=== PATIENT | female | born 1940 | race Caucasian/White ===

== ENCOUNTER 2021-03-06 16:27 | Emergency (ER) | payer MEDICARE, SELFPAY ==
[2021-03-06] VITALS (9 sets, daily range): BP systolic 149–170; BP diastolic 73–96; PULSE 78–88; RESP 12–22; TEMP 36.4; O2SAT 98–100
--- NOTE | ~2021-03-06 | US_ITS ---
US venous doppler [facility] DATE: 03/06/2021 17:25 INDICATION: Left leg pain and swelling TECHNIQUE: Real-time and color flow imaging and Doppler analysis COMPARISON: None FINDINGS: There is spontaneous and phasic flow and normal augmentation and color flow signal and norm al compression of the deep veins of the left lower extremity. Left greater saphenous vein is patent. IMPRESSION: No evidence of deep venous thrombosis of the left lower extremity Reviewed, dictated and finalized at [facility]. Reviewed, dictated and finalized at location A.
--- NOTE | 2021-03-06 19:27 | PC.NURSE ---
Pt was sent from [facility] for evaluation of lower leg ulcers looking worse and odorous today and concerns regarding a DVT per the wound nurse that was seeing her today. Pts son was notified by the facility of patient being sent for eval.
[2021-03-06 20:00] LABS: Basophils Absolute Auto 0.1 K/mm3 (0.0-0.1); Basophils Percent Auto 0.8 % (0.2-1.2); Eosinophils Absolute Auto 0.2 K/mm3 (0-0.3); Eosinophils Percent Auto 2.8 % (0-4.4); Hematocrit 40.4 % (37.0-47.0); Hemoglobin 12.9 g/dL (12.0-15.0); Immature Granulocyte Absolute 0.02 K/mm3 (0.00-0.031); Immature Granulocyte Percent A 0.3 % (0-0.5); Lymphocytes Absolute Auto 1.79 K/mm3 (0.9-3.2); Lymphocytes Percent Auto 22.6 % (18.3-44.2); Mean Corpuscular HGB Conc 31.9 g/dl (32-36); Mean Corpuscular Hemoglobin 30.2 pg (26-34); Mean Corpuscular Volume 94.6 fl (80-100); Mean Platelet Volume 9.3 fl (7.4-10.4); Monocytes Absolute Auto 0.7 K/mm3 (0.1-0.6); Monocytes Percent Auto 9.3 % (2.6-8.5); Neutrophils Absolute Auto 5.1 K/mm3 (1.3-6.7); Neutrophils Percent Auto 64.2 % (45.5-73.1); Platelet Count Result 308 k/mm3 (150-375); Red Blood Count 4.27 M/mm3 (4.2-5.4); Red Cell Distribution Width 15.7 % (11.5-14.5); White Blood Count 7.9 K/mm3 (4.5-10.0)
[2021-03-06 20:14] LABS: Lactic Acid Reflex 1.2 mmol/L (0.7-2.1)
[2021-03-06 20:16] LABS: Alanine Aminotransferase 16 U/L (4-35); Albumin Level 3.8 g/dL (3.5-5.1); Alkaline Phosphatase 110 U/L (38-126); Anion Gap 8 mmol/L (8-16); Aspartate Amino Transferase 28 U/L (14-36); Bilirubin,Total 0.9 mg/dL (0.2-1.3); Blood Urea Nitrogen 13 mg/dL (7-17); Calcium 9.8 mg/dL (8.4-10.2); Carbon Dioxide 29 mmol/L (22-30); Chloride 99 mmol/L (98-107); Estimated Glomerular Filt Rate 53; Glucose 102 mg/dL (65-110); Potassium 3.4 mmol/L (3.4-5.0); Sodium 136 mmol/L (137-145)
--- NOTE | 2021-03-06 20:47 | PC.NURSE ---
Called [facility] to request transport. Declined Called [facility] service to request transport. No answer Called [facility] to request transport. ETA [id number]
--- NOTE | 2021-03-06 21:36 | PC.NURSE ---
Called [facility] at [phone] and gave report to Leisa GOMEZ on pt status and POC.
--- NOTE | 2021-03-06 22:23 | ED.EXTPRO ---
HPI - Extremity Problem General Chief complaint: Extremity Problem,Nontraumatic Stated complaint: Left leg pain Time Seen by Provider: 03/06/21 19:12 Source: EMS and RN notes reviewed Mode of arrival: EMS Limitations: dementia History of Present Illness HPI Narrative: 80-year-old with a history of dementia, chronic foot ulcer was sent from a correction for venous Dopplers to rule out DVT of her left leg. Patient nurse mentions that she has been having this ulcer for quite some time and noticed some drainage this morning. However they denied any history of fever or chills. No history could be obtained from the patient secondary to her dementia MD Complaint: extremity pain Onset (ago): week(s) Pain Consistency: constant Location: left Associated symptoms: denies other symptoms Related Data Allergies Allergy/AdvReac Type Severity Reaction Status Date / Time No Known Allergies Allergy Verified 03/06/21 19:52 Review of Systems Review of Systems: ROS unobtainable: Yes unobtainable due to medical condition (Dementia) Exam Narrative: Exam Narrative: GENERAL: Well-appearing, well-nourished, and in no acute distress. Constantly cries HEAD: Normocephalic, atraumatic. EYES: PERRLA and EOMI.. NECK: Supple. CHEST: Clear to auscultation. No respiratory distress. HEART: Regular rate and rhythm. No murmur heard. Normal peripheral pulses. ABDOMEN: Soft, nontender, nondistended, normal active bowel sounds. EXTREMITIES: Normal range of motion. No edema. Examination of the left foot shows multiple small ulcers on the dorsum and also on the lateral aspect of the ankle. Ulcer on the dorsum of the foot has yellowish crater with mild discharge. No odor. Very tender to touch SKIN: Warm, dry, no rash. NEURO: No focal deficits. Alert and oriented x3. PSYCH: Normal mood and affect. Course Vital Signs Vital signs: Vital Signs Temperature 36.4 C L 03/06/21 16:42 Pulse Rate 84 03/06/21 16:42 Respiratory Rate 12 03/06/21 16:42 Blood Pressure 159/83 H 03/06/21 16:42 Pulse Oximetry 99 03/06/21 16:42 Temperature 36.4 C L 03/06/21 16:42 Pulse Rate 83 03/06/21 21:51 Respiratory Rate 16 03/06/21 21:51 Blood Pressure 161/96 H 03/06/21 21:51 Pulse Oximetry 98 03/06/21 21:51 MDM - Extremity (Nontraumatic) Lab Data Result diagrams: 03/06/21 19:52 03/06/21 19:52 Labs: Lab Results 03/06/21 03/06/21 03/06/21 Range/Units 19:52 19:52 19:52 WBC 7.9 (4.5-10.0) K/mm3 RBC 4.27 (4.2-5.4) M/mm3 Hgb 12.9 (12.0-15.0) g/dL Hct 40.4 (37.0-47.0) % MCV 94.6 (80-100) fl MCH 30.2 (26-34) pg MCHC 31.9 L (32-36) g/dl RDW 15.7 H (11.5-14.5) % Plt Count 308 (150-375) k/mm3 MPV 9.3 (7.4-10.4) fl Immature Gran % (Auto) 0.3 (0-0.5) % Neut % (Auto) 64.2 (45.5-73.1) % Lymph % (Auto) 22.6 (18.3-44.2) % Lake % (Auto) 9.3 H (2.6-8.5) % Eos % (Auto) 2.8 (0-4.4) % Baso % (Auto) 0.8 (0.2-1.2) % Lymph # (Auto) 1.79 (0.9-3.2) K/mm3 Lake # (Auto) 0.7 H (0.1-0.6) K/mm3 Eos # (Auto) 0.2 (0-0.3) K/mm3 Baso # (Auto) 0.1 (0.0-0.1) K/mm3 Abs Immat Gran (auto) 0.02 (0.00-0.031) K/mm3 Absolute Neuts (auto) 5.1 (1.3-6.7) K/mm3 Absolute Nucleated RBC 0.0 (0.0-0.012) K/mm3 Nucleated RBC % 0.0 (0.0-0.2) % Sodium 136 L (137-145) mmol/L Potassium 3.4 (3.4-5.0) mmol/L Chloride 99 (98-107) mmol/L Carbon Dioxide 29 (22-30) mmol/L Anion Gap 8 (8-16) mmol/L BUN 13 (7-17) mg/dL Creatinine 1.00 (0.7-1.0) mg/dL Estim Creat Clear Calc Not Reportable Estimated GFR 53 L (59 - ) Glucose 102 (65-110) mg/dL Lactic Acid 1.2 (0.7-2.1) mmol/L Calcium 9.8 (8.4-10.2) mg/dL Total Bilirubin 0.9 (0.2-1.3) mg/dL AST 28 (14-36) U/L ALT 16 (4-35) U/L Alkaline Phosphatase 110 (38-126) U/L Total Protein 7.0 (6.3-8.2) g/dL Albumin 3.8 (3
--- NOTE | 2021-03-06 22:52 | PC.NURSE ---
[facility] called with ETA update of midnight.
--- NOTE | 2021-03-07 00:21 | PC.NURSE ---
called [facility] for ETA update. ETA [id number]
[2021-03-07 01:07] VITALS: BP 180/105; PULSE 77; RESP 18; TEMP 36.8; O2SAT 99
--- NOTE | 2021-03-07 01:29 | PC.NURSE ---
called [facility] for ETA update. Due to 911 call volume new ETA is [id number]
[2021-03-07 03:31] VITALS: BP 185/96; PULSE 90; RESP 18; O2SAT 99
--- NOTE | 2021-03-07 03:53 | PC.NURSE ---
called [facility] for ETA update. ETA [id number]
--- NOTE | 2021-03-07 04:28 | PC.NURSE ---
[facility] called with updated ETA. ETA [id number]
--- NOTE | 2021-03-07 05:54 | PC.NURSE ---
[facility] here.
== END 2021-03-07 05:57 ==
PROVIDERS: Emergency Provider Family Medicine
DX: L97.522 Non-pressure chronic ulcer of other part of left foot with fat layer exposed (principal); F03.90 Unspecified dementia, unspecified severity, without behavioral disturbance, psychotic disturbance, mood disturbance, and anxiety; M79.605 Pain in left leg
CPT/HCPCS: 36415; 80053; 83605; 85025; 87040; 87070; 87147; 87186; 87205; 93971; 96365; 99284

== ENCOUNTER 2021-05-19 13:24 | Inpatient (IN) | payer MEDICARE, SELFPAY ==
[2021-05-19] VITALS (16 sets, daily range): BP systolic 109–197; BP diastolic 79–130; PULSE 82–119; RESP 13–26; TEMP 36.4–36.8; O2SAT 93–98; BMI 23.3
--- NOTE | ~2021-05-19 | XR_ITS ---
XR chest 1V portable 05/19/2021 14:30 Indication: Elevated troponin. Altered mental status. Procedure: AP portable chest Comparison: No prior studies for comparison. Findings: There are linear infiltrates of the right midlung zone which most likely represents atelect asis. No focal pneumonia, edema, pleural effusion or pneumothorax. Impression: 1: Linear infiltrates right midlung, likely atelectasis. Reviewed, dictated and finalized at location A. Impression: 1: Linear infiltrates right midlung, likely atelectasis.
--- NOTE | ~2021-05-19 | CT_ITS ---
EXAMINATION: CT brain wo con INDICATION: Confusion COMPARISON: None TECHNIQUE: Standard unenhanced head CT. The dose-length product (DLP) was 681.00 mGy-cm. The mA was a djusted according to patient size. Iterative reconstruction technique was employed. FINDINGS: There is no acute intraparenchymal hemorrhage. No evidence of mass lesion. No evidence of a cute infarction. There is an old infarction of the left occipital lobe. There is mild periventricular and subcortical hypodensity probably related to small vessel ischemic disease. There is mild promine nce of the sulci and ventricles related to cerebral atrophy. Intracranial calcified cerebral atherosc lerosis is noted. There are no extra-axial collections. There is no mass effect or midline shift. The orbits and soft tissues are unremarkable. The visualized sinuses and mastoid air cells are well aera nima. IMPRESSION: 1. 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 2. Age related findings. Reviewed, dictated and finalized at location A.
--- NOTE | ~2021-05-19 | US_ITS ---
EXAMINATION:US venous doppler LE LT INDICATION:Left leg swelling TECHNIQUE: Multiple grayscale, color flow and Doppler images of the left lower extremity deep venous systems were obtained and reviewed. COMPARISON:03/06/2021 FINDINGS: There is deep venous thrombosis of the left common femoral, profunda femoral, femoral, popl iteal, posterior tibial and peroneal veins. IMPRESSION: 1: Extensive deep venous thrombosis of the left lower extremity. Dr. Sim Saavedra discussed with the patient's nurse, Angela, from [facility] at 05/20/2021 12:0 2 CDT. Reviewed, dictated and finalized at location A. IMPRESSION: 1: Extensive deep venous thrombosis of the left lower extremity. Dr. Sim Saavedra discussed with the patient's nurse, Angela, from [facility] at 05/20/2021 12:02 CDT.
--- NOTE | 2021-05-19 13:36 | ECG_ITS ---
Measurements Intervals [place] Rate: 95 P: 35 HI: 165 QRS: -60 QRSD: 86 T: 59 QT: 323 QTc: 407 Interpretive Statements SINUS RHYTHM LEAD REVERSSAL V1, V2 LEFT AXIS DEVIATION CONSIDER INFERIOR INFARCT, AGE INDETERMINATE BASELINE ARTIFACT- I, II, III, AVR, AVL, AVF ABNORMAL ECG Electronically Signed On 05-21-2021 16:31:49 CDT by Jared Anderson D.O.
[2021-05-19] MEDS: METOPROLOL TARTRATE INJ 5 MG/5 ML VIAL IV PUSH (14:35)
[2021-05-19] MEDS: SODIUM CHLORIDE 0.9% IV 1,000 ML 999 ML IV CONT ×2 (14:35→16:22)
--- NOTE | 2021-05-19 14:41 | ED.GENADULT ---
HPI - General Adult General Chief complaint: Altered Mental Status Stated complaint: alt loc Time Seen by Provider: 05/19/21 13:30 History of Present Illness HPI narrative: 80-year-old female with history of dementia usually oriented x1 sent by correction for altered mental status. Apparently patient had elevated troponin when they got labs after noting change in status. Per report troponin was elevated 0.095 at correction. Patient arrives alert, cachectic, attempting to answer questions but oriented x0, afebrile with dry mucous membranes. Patient states no pain currently unable to get for HPI or ROS due to dementia. Related Data Home Medications Medication Instructions Recorded Confirmed amlodipine 10 mg PO DAILY 05/19/21 05/19/21 aspirin 81 mg PO DAILY 05/19/21 05/19/21 atorvastatin 40 mg PO HS 05/19/21 05/19/21 clopidogrel 75 mg PO DAILY 05/19/21 05/19/21 famotidine 20 mg PO HS 05/19/21 05/19/21 lorazepam [Ativan] 0.5 mg PO BID 05/19/21 05/19/21 ondansetron 4 mg PO Q6H PRN 05/19/21 05/19/21 quetiapine [Seroquel] 50 mg PO HS 05/19/21 05/19/21 sertraline 50 mg PO DAILY 05/19/21 05/19/21 tramadol 25 mg PO Q8H PRN 05/19/21 05/19/21 trazodone 50 mg PO TID PRN 05/19/21 05/19/21 Allergies Allergy/AdvReac Type Severity Reaction Status Date / Time No Known Allergies Allergy Verified 05/19/21 23:16 Review of Systems Review of Systems: ROS unobtainable: Yes unobtainable due to mental status (History of dementia oriented x0.) [facility] Past Medical History Medical History Cerebrovascular accident Hyperlipidemia Hypertension Peripheral vascular disease Pseudobulbar affect Vascular dementia Surgical History Surgical History History of procedure for peripheral vascular disease Bilateral lower extremity stents performed at [facility] in 2019 or 2020. Family History Family History Other Family history unknown Social History Social History Social History: Resident of [facility]. She stayed at a facility in [facility] and before that she was living in her own home in [place]. The patient is a [employer]. No mention of alcohol, tobacco, or drug use. Son Sami Bueno is her healthcare power of trade mark attorney, who reports that the patients code status is do not resuscitate. Smoking status: Never smoker Alcohol intake: never Substance use: never Spiritual care concerns: No Exam Narrative: General: alert, afebrile, confused, attempting to answer all questions Head: normocephalic, atraumatic ENT: dry mucous membranes, oropharynx patent, no rhinorrhea Neck: supple, trachea midline, no JVD Chest: equal chest rise bilaterally, no chest wall trauma Lungs: clear to auscultation bilaterally, respirations mildly labored CV: regular rate, no YUE B, calf size equal bilaterally Abd: soft, non-distended, non-tender, no rebound, patient does not have g-tube : no CVA tenderness B, bladder non-distended Back: no lumbar bony tenderness. paraspinal muscles without spasm EXT: no deformity noted, moving all extremities equally Skin: warm, dry, intact, no cyanosis Neuro: alert, oriented x 3; CN 2-12 grossly intact, no gross focal deficits Psych: affect appropriate, though content normal Course Course Emergency Course: Patient with altered mental status and severe dehydration by exam and sodium 157, slightly elevated troponinn with no acute EKG changes. Patient does not have PEG tube, unsure if able to still feed self. Will admit for further evaluation. Modified code status sent by family and on chart. Vital Signs Vital signs: Vital Signs Temperature 36.5 C 05/19/21 13:25 Pulse Rate 115 H 05/19/21 13:25 Respiratory Rate 18 05/19/21 13:25 Blood Pressure 169/130 H 05/19/21 13:
[2021-05-19 15:02] LABS: Basophils Absolute Auto 0.1 K/mm3 (0.0-0.1); Basophils Percent Auto 0.3 % (0.2-1.2); Eosinophils Percent Auto 0.1 % (0-4.4); Hematocrit 50.8 % (37.0-47.0); Hemoglobin 15.7 g/dL (12.0-15.0); Immature Granulocyte Percent A 0.7 % (0-0.5); Lymphocytes Absolute Auto 1.38 K/mm3 (0.9-3.2); Lymphocytes Percent Auto 9.2 % (18.3-44.2); Mean Corpuscular HGB Conc 30.9 g/dl (32-36); Mean Corpuscular Hemoglobin 29.8 pg (26-34); Mean Corpuscular Volume 96.4 fl (80-100); Mean Platelet Volume 10.8 fl (7.4-10.4); Monocytes Absolute Auto 1.2 K/mm3 (0.1-0.6); Monocytes Percent Auto 7.9 % (2.6-8.5); Neutrophils Absolute Auto 12.2 K/mm3 (1.3-6.7); Neutrophils Percent Auto 81.8 % (45.5-73.1); Platelet Count Result 253 k/mm3 (150-375); Red Blood Count 5.27 M/mm3 (4.2-5.4); Red Cell Distribution Width 14.3 % (11.5-14.5)
[2021-05-19 15:15] LABS: INR 1.2; Prothrombin Time 15.4 Seconds (11.1-14.7)
[2021-05-19 15:16] LABS: Alanine Aminotransferase 16 U/L (4-35); Albumin Level 3.4 g/dL (3.5-5.1); Alkaline Phosphatase 99 U/L (38-126); Anion Gap 8 mmol/L (8-16); Aspartate Amino Transferase 23 U/L (14-36); Bilirubin,Total 0.7 mg/dL (0.2-1.3); Blood Urea Nitrogen 43 mg/dL (7-17); Calcium 8.9 mg/dL (8.4-10.2); Carbon Dioxide 30 mmol/L (22-30); Chloride 119 mmol/L (98-107); Estimated CRCL calculation 28 ml/min; Estimated Glomerular Filt Rate 36; Glucose 130 mg/dL (65-110); Potassium 3.1 mmol/L (3.4-5.0); Sodium 157 mmol/L (137-145)
[2021-05-19 15:46] LABS: NT Pro B Type Natriuretic Pept 814 pg/mL (5-100); Troponin I 0.035 ng/mL (0.000-0.034)
--- NOTE | 2021-05-19 15:46 | PC.NURSE ---
SPOKE WITH MAURICE AT [facility] WHO INDICATED THAT PT IS A DNR BUT WE HAVE NO OFFICIAL PAPERWORK. THEN CALLED SON DEEDEE WHO SPOKE WITH DR COVARRUBIAS
[2021-05-19] MEDS: hydrALAZINE HCL 20 MG/ML VIAL 10 MG IV PUSH (16:22)
[2021-05-19 16:52] LABS: Add Urine Microscopic? YES; Appearance Urine Clear (Clear); Bilirubin Urine Negative (Negative); Blood Urine 2+ (Negative); Color Urine Yellow (Yellow); Glucose Urine UA Negative (Negative); Ketones Urine Negative (Negative); Leukocyte Esterase Ur Negative LEU/UL (Negative); Mucus Urine Few /lpf; Nitrate Urine Negative (Negative); Protein Urine 1+ mg/dL (Negative); Specific Grav Ur 1.023 (1.001-1.035); Squamous Epithelial Cell Urine Occasional /hpf (Few); Urobilinogen Urine Negative mg/dL (<2.0)
--- NOTE | 2021-05-19 17:45 | PM.IMHP ---
H&P: HPI History of Present Illness Date/Time: 05/19/21 17:45 Chief Complaint: Altered mental status. Narrative: This is a 80-year-old female with history of stroke, peripheral vascular disease, dementia, hypertension, hyperlipidemia, and anxiety presented to the emergency department earlier today via EMS from [facility] for evaluation of altered mental status. The patient is alert but not oriented and she is not able to provide me any meaningful history and as such a majority of the following is obtained via a review of her electronic medical records as well as discussions with her son, Sami Bueno, via phone. Sami became her legal guardian within the past several years due to the patient's progressive dementia. Prior to that she did not see really see doctors due to her [employer] haydee and aside from the dementia she has been quite healthy up into the last few years when she has developed leg pain due to peripheral vascular disease. She had stents placed in her lower extremities sometime within the last year and since that time she has progressively declined. Within the past several months she has been crying and moaning frequently which has been attributed to pseudobulbar affect. She has preferred to be in a wheelchair the last several months and she has been less interactive. Her appetite has also dropped off though I was told she has not been eating or drinking whatsoever the past several days. Labs were drawn sometime this morning and is my understanding that she was sent to the emergency department because her troponin was a bit elevated. Since arrival she has moaned and cried out frequently though she is unable to verbalize why. She did answer a couple of yes and no questions though I am not certain if her responses are accurate. She did indicate that she was having pain though cannot localize, and also indicated having some nausea. Vital signs have been stable in the emergency department. Labs are consistent with dehydration and she is being admitted in this setting. Review of Systems Review of Systems: Unable to obtain accurately given clinical condition as above. [facility] Past Medical History Medical History (Updated 05/19/21 @ 19:59 by Kayla Rosado PA-C) Cerebrovascular accident Hyperlipidemia Hypertension Peripheral vascular disease Pseudobulbar affect Vascular dementia Surgical History Surgical History (Updated 05/19/21 @ 20:17 by Kayla Rosado PA-C) History of procedure for peripheral vascular disease Bilateral lower extremity stents performed at [facility] in 2019 or 2020. Family History Family History Other Family history unknown Social History Social History (Updated 05/19/21 @ 20:22 by Kyala Rosado PA-C) Social History: Resident of [facility]. She stayed at a facility in [facility] and before that she was living in her own home in [place]. The patient is a [employer]. No mention of alcohol, tobacco, or drug use. Son Sami Bueno is her healthcare power of tax associate attorney, who reports that the patients code status is do not resuscitate. Meds Home Medications and Allergies Home Medications Medication Instructions Recorded Confirmed Type doxycycline hyclate 100 mg PO DAILY #14 cap 03/06/21 Rx amlodipine 10 mg PO DAILY 05/19/21 History aspirin [Adult Aspirin EC Low 81 mg PO DAILY 05/19/21 History Strength] atorvastatin 40 mg PO HS 05/19/21 History clopidogrel 75 mg PO DAILY 05/19/21 History famotidine 20 mg PO HS 05/19/21 History lorazepam [Ativan] 0.5 mg PO BID 05/19/21 History quetiapine [Seroquel] 50 mg PO HS 05/19/21 History sertraline 50 mg PO DAILY 05/19/21 History trazodone 25 mg PO HS 05/19/21 History Allergies Allergy/AdvReac Type Severity Reaction Status Date / Time No Known Allergies Allergy Verified 05/19/21 15:00 Vital Signs Vital Signs - 24 hr 05/19/21
[2021-05-19 17:59] LABS: Troponin I 0.053 ng/mL (0.000-0.034)
[2021-05-19 20:49] LABS: Lactic Acid Reflex 2.1 mmol/L (0.7-2.1)
[2021-05-19 21:10] LABS: Troponin I 0.066 ng/mL (0.000-0.034)
[2021-05-19 21:36] LABS: CRP 3.8 mg/dL (<1.0)
[2021-05-19 21:52] LABS: Anion Gap 11 mmol/L (8-16); Blood Urea Nitrogen 40 mg/dL (7-17); Calcium 8.9 mg/dL (8.4-10.2); Carbon Dioxide 25 mmol/L (22-30); Chloride 121 mmol/L (98-107); Creatine Kinase 57 U/L (30-135); Estimated CRCL calculation 33 ml/min; Estimated Glomerular Filt Rate 43; Glucose 123 mg/dL (65-110); Magnesium 2.4 mg/dL (1.6-2.3); Sodium 157 mmol/L (137-145)
--- NOTE | 2021-05-19 22:28 | ECG_ITS ---
Measurements Intervals [place] Rate: 114 P: 15 MA: 157 QRS: -58 QRSD: 84 T: 77 QT: 355 QTc: 489 Interpretive Statements SINUS TACHYCARDIA LEFT VENTRICULAR HYPERTROPHY AND ST-T CHANGE INFERIOR INFARCT, AGE INDETERMINATE BORDERLINE ST-T WAVE ABNORMALITY- HIGH LATERAL LEADS ABNORMAL ECG Electronically Signed On 05-20-2021 6:58:20 CDT by Jared Anderson D.O.
[2021-05-19] MEDS: DEXTROSE 5% 1,000 ML 1,000 ML 75 ML IV CONT (22:52)
--- NOTE | 2021-05-19 23:14 | ADMGEN ---
This patient, Esther Bueno, was admitted to [facility] Room 331-01 at 1945. Patient/family oriented to hospital policies and general routines including ID bracelet, bed and alarms, visiting hours, pain management, procedures, bathroom and other care routines, personal items, smoking policy, room service/diet, and visiting hours. Information on how to activate the Rapid Response Team has been discussed. Patient/Family are encouraged to report perceived risks to care and to ask questions if they do not understand what they are told or what they should do.
[2021-05-19 23:34] LABS: Reflex Lactic Acid Yes or No Add Lactic
[2021-05-20] VITALS (7 sets, daily range): BP systolic 102–160; BP diastolic 61–110; PULSE 74–91; RESP 18–26; TEMP 35.8–36.7; O2SAT 94–96
[2021-05-20] LABS: Lactic Acid 1.1 mmol/L (0.7-2.1)
[2021-05-20] MEDS: QUEtiapine FUMARATE 25 MG TABLET 50 MG PO ×2 (00:29→21:54)
[2021-05-20] MEDS: ATORVASTATIN 40 MG TABLET PO ×2 (00:29→21:55)
[2021-05-20] MEDS: FAMOTIDINE 20 MG TABLET PO ×2 (00:29→21:54)
[2021-05-20] MEDS: amLODIPine BESYLATE 5 MG TABLET 10 MG PO (06:04)
--- NOTE | 2021-05-20 08:26 | PM.IMPN ---
Progress Note: A&P Additional Plan START OF DOCTOR MELODIE?S PROGRESS NOTE Subjective: The patient is somnolent but arousable. I am uncertain as to whether her lack of cooperation is due to encephalopathy versus dementia versus the fact that the patient is still somnolent and may desire to continue sleeping. Unfortunately I am unable to elicit much information from this patient Objective: General: -somnolent but arousable -No acute distress -No dyspnea -No tachypnea Heart: -Regular rate -Regular rhythm -No murmurs -No gallops -No rubs Lungs: -No wheeze -No rhonchi -No rales Abdomen: -Normal bowel sounds in all four quadrants -No rebound -No guarding -No tenderness Extremities: -2/4 pulse in all four extremities -No clubbing -No cyanosis -left lower extremity edema/induration present Additional Details / Additional Findings / Exceptions / Miscellaneous: Cranial nerves 2-12 appear to be intact however patient does not provide reliable feedback Pertinent Laboratory Results / Pertinent Radiology Results / Pertinent Diagnostic Results / Pertinent Vital Signs: Blood pressure 160/110, pulse 81 Assessment / Plan: Encephalopathy. Possibly secondary to question of pneumonia versus dehydration Query pneumonia. Azithromycin 500 mg IV daily Rocephin 1 g IV daily Pseudo bulbar after affect Left lower extremity edema. Left lower extremity ultrasound to rule out DVT Vascular dementia Peripheral vascular disease, status post bilateral lower extremity stenting. Aspirin 81 mg p.o. daily plus Plavix 75 mg p.o. daily plus Lipitor 40 mg p.o. q.h.s. Hypertension. Norvasc 10 mg p.o. daily plus metoprolol 12.5 mg p.o. b.i.d. plus Imdur 60 mg p.o. daily History of CVA. Aspirin 81 mg p.o. daily plus Plavix 75 mg p.o. daily plus Lipitor 40 mg p.o. q.h.s. Hyperlipidemia. Lipitor 40 mg p.o. q.h.s. Anxiety GERD. Pepcid 20 mg p.o. q.h.s. Depression. Seroquel 50 mg p.o. q.h.s. plus Zoloft 50 mg p.o. daily Hypokalemia. Monitor potassium levels intermittently and supplement as necessary Hypernatremia. Will monitor sodium levels q.4 hours. IV D5W at 75 mL/hour Acute renal insufficiency. Will monitor creatinine intermittently. IV D5W at 75 mL/hour Elevated troponin, for NSTEMI. Troponin is flat. This may be a false elevation secondary to acute renal insufficiency and/or hypertensive urgency. Aspirin 81 mg p.o. daily plus Plavix and 5 mg p.o. daily plus Lipitor 40 mg p.o. q.h.s. plus metoprolol 12.5 mg p.o. b.i.d. plus Imdur 60 mg p.o. daily. Due to patient's multiple medical comorbidities, age, and dementia, medical management this time Microscopic hematuria. Outpatient follow-up with Urology upon discharge DVT prophylaxis. Heparin 5000 units subcutaneously q.12 hours Disposition: Anticipate discharge in 24-72 hours END OF DOCTOR MELODIE?S PROGRESS NOTE Subjective Date/time seen: 05/20/21 08:26 Objective Data Vital Signs Vital Signs: Vital Signs - 24 hr 05/19/21 13:25 05/19/21 13:43 05/19/21 14:00 Temperature 97.7 F Pulse Rate 115 H 110 H 119 H Respiratory Rate 18 17 20 Blood Pressure 169/130 H 169/130 H 163/122 H Pulse Oximetry 94 93 94 05/19/21 14:07 05/19/21 14:30 05/19/21 14:35 Temperature 98.3 F Pulse Rate 116 H 113 H 110 H Respiratory Rate 19 23 H Blood Pressure 176/128 H 177/122 H Pulse Oximetry 94 95 05/19/21 15:30 05/19/21 15:31 05/19/21 15:58 Temperature Pulse Rate 95 95 88 Respiratory Rate 13 14 15 Blood Pressure 194/130 H 197/125 H 156/103 H Pulse Oximetry 95 96 05/19/21 16:00 05/19/21 16:19 05/19/21 16:31 Temperature Pulse Rate 86 91 87 Respiratory Rate 26 H 26 H 18 Blood Pressure 161/100 H 154/108 H 151/97 H Pulse Oximetry 05/19/21 17:01 05/19/21 19:25 05/19/21 19:45 Temperature 97.6 F Pulse Rate 82 95 105 H Respiratory Rate 26 H 16 20 Blood Pressure 150/79 H 125/89 144/112 H Pulse Oxi
[2021-05-20 08:48] LABS: Basophils Percent Auto 0.4 % (0.2-1.2); Eosinophils Absolute Auto 0.1 K/mm3 (0-0.3); Hematocrit 47.3 % (37.0-47.0); Hemoglobin 14.3 g/dL (12.0-15.0); Immature Granulocyte Absolute 0.04 K/mm3 (0.00-0.031); Immature Granulocyte Percent A 0.4 % (0-0.5); Lymphocytes Absolute Auto 1.57 K/mm3 (0.9-3.2); Lymphocytes Percent Auto 14.2 % (18.3-44.2); Mean Corpuscular HGB Conc 30.2 g/dl (32-36); Mean Corpuscular Hemoglobin 29.8 pg (26-34); Mean Corpuscular Volume 98.5 fl (80-100); Mean Platelet Volume 10.9 fl (7.4-10.4); Monocytes Absolute Auto 0.8 K/mm3 (0.1-0.6); Monocytes Percent Auto 7.6 % (2.6-8.5); Neutrophils Absolute Auto 8.5 K/mm3 (1.3-6.7); Neutrophils Percent Auto 76.4 % (45.5-73.1); Platelet Count Result 212 k/mm3 (150-375); Red Cell Distribution Width 14.4 % (11.5-14.5); White Blood Count 11.1 K/mm3 (4.5-10.0)
[2021-05-20 08:58] LABS: Sodium 152 mmol/L (137-145)
[2021-05-20 08:59] LABS: INR 1.1; Partial Thromboplastin Time 22.1 SECONDS (22.3-36.8); Prothrombin Time 14.2 Seconds (11.1-14.7)
[2021-05-20] MEDS: ISOSORBIDE MONONITRATE 60 MG TAB.ER.24H PO (10:26)
[2021-05-20] MEDS: HEPARIN SODIUM 5,000 UNITS/ML VIAL 5000 UNITS SUB-Q (10:27)
[2021-05-20] MEDS: ASPIRIN 81 MG ENTERIC TABLET PO (10:27)
[2021-05-20] MEDS: CLOPIDOGREL BISULFATE 75 MG TABLET PO (10:27)
[2021-05-20] MEDS: SERTRALINE HCL 50 MG TABLET PO (10:27)
[2021-05-20] MEDS: METOPROLOL TARTRATE 12.5 MG TABLET PO ×2 (10:27→21:53)
[2021-05-20 11:30] LABS: Sodium 152 mmol/L (137-145)
[2021-05-20] MEDS: DEXTROSE 5% 1,000 ML 1,000 ML 75 ML IV CONT (14:25)
[2021-05-20 16:21] LABS: Sodium 150 mmol/L (137-145)
[2021-05-20] MEDS: ACETAMINOPHEN 325 MG TABLET 650 MG PO ×2 (18:22→21:59)
[2021-05-20 20:30] LABS: Sodium 149 mmol/L (137-145)
[2021-05-20] MEDS: ENOXAPARIN 80 MG/0.8 ML SYRINGE 70 MG SUB-Q (21:55)
[2021-05-20 22:15] LABS: Partial Thromboplastin Time 24.9 SECONDS (22.3-36.8)
[2021-05-21 00:50] LABS: Sodium 146 mmol/L (137-145)
[2021-05-21] MEDS: DEXTROSE 5% 1,000 ML 1,000 ML 75 ML IV CONT (05:38)
[2021-05-21 06:00] VITALS: BP 142/86; PULSE 70; RESP 18; TEMP 36.7; O2SAT 97
[2021-05-21 06:08] LABS: Basophils Percent Auto 0.3 % (0.2-1.2); Eosinophils Absolute Auto 0.2 K/mm3 (0-0.3); Eosinophils Percent Auto 2.1 % (0-4.4); Immature Granulocyte Absolute 0.05 K/mm3 (0.00-0.031); Immature Granulocyte Percent A 0.5 % (0-0.5); Lymphocytes Absolute Auto 1.72 K/mm3 (0.9-3.2); Lymphocytes Percent Auto 16.1 % (18.3-44.2); Mean Corpuscular Hemoglobin 30.2 pg (26-34); Mean Corpuscular Volume 97.7 fl (80-100); Mean Platelet Volume 10.9 fl (7.4-10.4); Monocytes Absolute Auto 0.7 K/mm3 (0.1-0.6); Monocytes Percent Auto 6.9 % (2.6-8.5); Neutrophils Percent Auto 74.1 % (45.5-73.1); Platelet Count Result 183 k/mm3 (150-375); Red Cell Distribution Width 14.5 % (11.5-14.5); White Blood Count 10.7 K/mm3 (4.5-10.0)
[2021-05-21 06:26] LABS: Anion Gap 6 mmol/L (8-16); Blood Urea Nitrogen 29 mg/dL (7-17); Calcium 8.3 mg/dL (8.4-10.2); Carbon Dioxide 27 mmol/L (22-30); Chloride 113 mmol/L (98-107); Estimated CRCL calculation 43 ml/min; Estimated Glomerular Filt Rate 60; Glucose 102 mg/dL (65-110); Potassium 2.7 mmol/L (3.4-5.0); Sodium 146 mmol/L (137-145)
--- NOTE | 2021-05-21 07:36 | PM.IMPN ---
Progress Note: A&P Additional Plan START OF DOCTOR MELODIE?S PROGRESS NOTE Subjective: Patient appears to be at her baseline state of mentation which is demented however she no longer appears to be exhibiting encephalopathy on top of his baseline dementia. Because of her dementia, I am unable to solicit accurate feedback from the patient Objective: General: -alert -No acute distress -No dyspnea -No tachypnea Heart: -Regular rate -Regular rhythm -No murmurs -No gallops -No rubs Lungs: -No wheeze -No rhonchi -trace, scattered bilateral rales Abdomen: -Normal bowel sounds in all four quadrants -No rebound -No guarding -No tenderness Extremities: -2/4 pulse in all four extremities -No clubbing -No cyanosis -left lower extremity edema/induration present Additional Details / Additional Findings / Exceptions / Miscellaneous: Cranial nerves 2-12 appear to be intact however patient does not provide reliable feedback Pertinent Laboratory Results / Pertinent Radiology Results / Pertinent Diagnostic Results / Pertinent Vital Signs: Blood pressure 142/86, white blood count 10.7, 71%, 10 potassium 2.7 Assessment / Plan: Encephalopathy. Possibly secondary to question of pneumonia versus dehydration Query pneumonia. 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 Lower extremity mg subcutaneously q.12 hours Vascular dementia Peripheral vascular disease, status post bilateral lower extremity stenting. Aspirin 81 mg p.o. daily plus Plavix 75 mg p.o. daily plus Lipitor 40 mg p.o. q.h.s. Hypertension. Norvasc 10 mg p.o. daily plus metoprolol 12.5 mg p.o. b.i.d. plus Imdur 60 mg p.o. daily History of CVA. Aspirin 81 mg p.o. daily plus Plavix 75 mg p.o. daily plus Lipitor 40 mg p.o. q.h.s. Hyperlipidemia. Lipitor 40 mg p.o. q.h.s. Anxiety GERD. Pepcid 20 mg p.o. q.h.s. Depression. Seroquel 50 mg p.o. q.h.s. plus Zoloft 50 mg p.o. daily Hypokalemia. Monitor potassium levels intermittently and supplement as necessary Hypernatremia. Will monitor sodium levels q.4 hours. IV D5W at 75 mL/hour Acute renal insufficiency. Will monitor creatinine intermittently. IV D5W at 75 mL/hour Elevated troponin, for NSTEMI. Troponin is flat. This may be a false elevation secondary to acute renal insufficiency and/or hypertensive urgency. Aspirin 81 mg p.o. daily plus Plavix and 5 mg p.o. daily plus Lipitor 40 mg p.o. q.h.s. plus metoprolol 12.5 mg p.o. b.i.d. plus Imdur 60 mg p.o. daily. Due to patient's multiple medical comorbidities, age, and dementia, medical management this time Microscopic hematuria. Outpatient follow-up with Urology upon discharge DVT prophylaxis. Lovenox 70 mg subcutaneously q.12 hours Disposition: Patient appears medically stable for discharge on this day of May 21, 2020 END OF DOCTOR MELODIE?S PROGRESS NOTE Subjective Date/time seen: 05/21/21 07:36 Objective Data Vital Signs Vital Signs: Vital Signs - 24 hr 05/20/21 08:00 05/20/21 10:27 05/20/21 14:00 Temperature 96.5 F L Pulse Rate 84 91 Respiratory Rate 26 H Blood Pressure 105/78 Pulse Oximetry 96 96 05/20/21 20:00 05/20/21 21:53 05/20/21 22:00 Temperature 98.1 F Pulse Rate 74 91 74 Respiratory Rate 18 18 Blood Pressure 102/61 Pulse Oximetry 94 94 05/21/21 06:00 Temperature 98.0 F Pulse Rate 70 Respiratory Rate 18 Blood Pressure 142/86 H Pulse Oximetry 97 Intake/Output Intake/Output: Intake & Output 05/18/21 05/19/21 05/20/21 05/21/21 23:59 23:59 23:59 23:59 Intake Total 1999 1560 1000 Output Total 150 Balance 1850 1560 1000 Meds/Results Medications: Active Medications Generic Name Dose Route Start Last Admin Trade Name Freq PRN Reason Stop Dose Admin Acetaminophen 650 mg 05/19/21 23:38 05/20/21 21:59 Acetaminophen 325 Mg Tablet PO 650 mg Q4H PRN Administration
[2021-05-21 08:00] VITALS: O2SAT 97
[2021-05-21] MEDS: ENOXAPARIN 80 MG/0.8 ML SYRINGE 70 MG SUB-Q (08:36)
[2021-05-21 08:37] VITALS: PULSE 95
[2021-05-21] MEDS: ISOSORBIDE MONONITRATE 60 MG TAB.ER.24H PO (08:37)
[2021-05-21] MEDS: SERTRALINE HCL 50 MG TABLET PO (08:37)
[2021-05-21] MEDS: amLODIPine BESYLATE 5 MG TABLET 10 MG PO (08:37)
[2021-05-21] MEDS: METOPROLOL TARTRATE 12.5 MG TABLET PO (08:37)
[2021-05-21] MEDS: ASPIRIN 81 MG ENTERIC TABLET PO (08:37)
[2021-05-21] MEDS: CLOPIDOGREL BISULFATE 75 MG TABLET PO (08:37)
[2021-05-21] MEDS: POTASSIUM CHLORIDE 20 MEQ TABLET 40 MEQ PO ×3 (08:44→14:20)
[2021-05-21 09:00] LABS: Sodium 146 mmol/L (137-145)
[2021-05-21] MEDS: traMADol HCL (*CRX) 25 MG TABLET PO (10:48)
[2021-05-21 13:23] LABS: Sodium 145 mmol/L (137-145)
[2021-05-21 14:00] VITALS: BP 118/72; PULSE 87; RESP 20; TEMP 36.9; O2SAT 100
--- NOTE | 2021-05-21 16:09 | PM.DS ---
DS: Admitting Diagnosis Discharge Date 4:12 p.m. on May 21, 2021 Admitting Diagnosis Encephalopathy, possibly secondary to question of pneumonia versus dehydration DS: Summary Hospital Course Hospital Course: See discharge summary below Time Spent with Patient Time attestation: Total time spent providing and/or coordinating discharge services: START OF DOCTOR MELODIE?S DISCHARGE SUMMARY Date of Admission: MayMay 19, 2021 Date of Discharge: 4:09 p.m. on May 21, 2021 Primary Diagnosis: Encephalopathy, possibly secondary to question of pneumonia versus dehydration Secondary Diagnosis: Query pneumonia Pseudobulbar affect Left lower extremity DVT, acute-new diagnosis Vascular dementia Peripheral vascular disease, status post bilateral lower extremity stenting Hypertension History of CVA paragraph hyperlipidemia paragraph anxiety paragraph GERD Depression Hypokalemia Hypernatremia Acute renal insufficiency Elevated troponin, query NSTEMI Microscopic hematuria Consultations: None Disposition: The patient will be advised follow up with her primary care physician 3-5 days post discharge for post hospitalization evaluation The patient is advised follow up Urology to 4 weeks post discharge for diagnosis microscopic hematuria The patient will require check a BMP 5 days post discharge for diagnosis of hypokalemia Discharge Medications: K-Dur 40 mEq p.o. daily Lorazepam 0.5 mg p.o. b.i.d. Zofran 4 mg p.o. q.6 hours p.r.n. nausea/vomiting Norvasc 10 mg p.o. daily Aspirin 81 mg p.o. daily Lipitor 40 mg p.o. q.h.s. Plavix 75 mg p.o. daily Pepcid 20 mg p.o. q.h.s. Seroquel 50 mg p.o. q.h.s. Zoloft 50 mg p.o. daily Ultram 25 mg p.o. q.8 hours p.r.n. pain Trazodone 50 mg p.o. t.i.d. p.r.n. listed as pain Metoprolol 12.5 mg p.o. b.i.d. Imdur 60 mg p.o. daily Doxycycline 100 mg p.o. b.i.d.. Quantity 10. 0 refills Eliquis 5 mg PO: 2 tabs p.o. b.i.d. until 11:59 p.m. on May 28, 2021 then 1 tab p.o. b.i.d. indefinitely thereafter. This medication should be started on the night of May 21, 2021 END OF DOCTOR MELODIE?S DISCHARGE SUMMARY DS: Data Data Completed and Pending Labs on day of discharge: Labs from last 24 hours 05/21/21 05/21/21 05/21/21 12:54 08:31 05:57 WBC 10.7 H RBC 4.30 Hgb 13.0 Hct 42.0 MCV 97.7 MCH 30.2 MCHC 31.0 L RDW 14.5 Plt Count 183 MPV 10.9 H Immature Gran % (Auto) 0.5 Neut % (Auto) 74.1 H Lymph % (Auto) 16.1 L [place] % (Auto) 6.9 Eos % (Auto) 2.1 Baso % (Auto) 0.3 Lymph # (Auto) 1.72 [place] # (Auto) 0.7 H Eos # (Auto) 0.2 Baso # (Auto) 0.0 Abs Immat Gran (auto) 0.05 H Absolute Neuts (auto) 8.0 H Absolute Nucleated RBC 0.0 Nucleated RBC % 0.0 APTT Sodium 145 146 H Potassium Chloride Carbon Dioxide Anion Gap BUN Creatinine Estim Creat Clear Calc Estimated GFR Glucose Calcium 05/21/21 05/21/21 05/20/21 05:57 00:36 21:25 WBC RBC Hgb Hct MCV MCH MCHC RDW Plt Count MPV Immature Gran % (Auto) Neut % (Auto) Lymph % (Auto) [place] % (Auto) Eos % (Auto) Baso % (Auto) Lymph # (Auto) [place] # (Auto) Eos # (Auto) Baso # (Auto) Abs Immat Gran (auto) Absolute Neuts (auto) Absolute Nucleated RBC Nucleated RBC % APTT 24.9 Sodium 146 H 146 H Potassium 2.7 L* Chloride 113 H Carbon Dioxide 27 Anion Gap 6 L BUN 29 H D Creatinine 0.90 Estim Creat Clear Calc 43 Estimated GFR 60 Glucose 102 Calcium 8.3 L 05/20/21 05/20/21 19:52 16:08 WBC RBC Hgb Hct MCV MCH MCHC RDW Plt Count MPV Immature Gran % (Auto) Neut % (Auto) Lymph % (Auto) [place] % (Auto) Eos % (Auto) Baso % (Auto) Lymph # (Auto) [place] # (Auto)
[2021-05-21 16:30] LABS: Sodium 143 mmol/L (137-145)
== END 2021-05-21 18:45 | DRG 640 ==
LOC: ANHED 17:25 → ANH3MEDSUR 05-20 00:10
PROVIDERS: Physician Assistant; Admitting Provider Internal Medicine Critical Care Medicine; Emergency Provider Emergency Medicine; Visit Provider Internal Medicine
DX: E86.0 Dehydration (principal); G93.41 Metabolic encephalopathy; J18.9 Pneumonia, unspecified organism; I82.402 Acute embolism and thrombosis of unspecified deep veins of left lower extremity; E87.0 Hyperosmolality and hypernatremia; F01.50 Vascular dementia, unspecified severity, without behavioral disturbance, psychotic disturbance, mood disturbance, and anxiety; E87.6 Hypokalemia; F48.2 Pseudobulbar affect; I10 Essential (primary) hypertension; R77.8 Other specified abnormalities of plasma proteins; F32.A Depression, unspecified; I73.9 Peripheral vascular disease, unspecified; E78.5 Hyperlipidemia, unspecified; K21.9 Gastro-esophageal reflux disease without esophagitis; F41.9 Anxiety disorder, unspecified; N28.9 Disorder of kidney and ureter, unspecified; R31.29 Other microscopic hematuria; Z79.82 Long term (current) use of aspirin; Z79.899 Other long term (current) drug therapy; Z86.73 Personal history of transient ischemic attack (TIA), and cerebral infarction without residual deficits; Z95.828 Presence of other vascular implants and grafts
CPT/HCPCS: 36415; 51701; 70450; 71045; 80048; 80053; 81001; 82550; 83605; 83735; 83880; 84295; 84443; 84484; 85025; 85610; 85730; 86140; 93005; 93971; 96361; 96374; 96375; 99285; A9270; J0360; J0456; J0696; J1644; J1650; J3480; J7030; J7060; J7070